=== PATIENT | male | born 1950 | race Caucasian/White ===

== ENCOUNTER → 2023-07-25 14:00 | Outpatient (REF) | payer MEDICARE, OTHER, SELFPAY ==
[2023-07-25 14:32] LABS: % Basophils 1.1 % (0-2); % Eosinophils 5.2 % (0-6); % Lymphocytes 28.4 % (20.5-51.1); % Monocytes 17.8 % (1.7-9.3); % Neutrophils 47.5 % (42.2-75.2); Absolute Eosinophils 0.2 10^3/uL (0-0.7); Absolute Monocytes 0.6 10^3/uL (0.1-0.6); Absolute Neutrophils 1.7 10^3/uL (1.4-6.5); Hematocrit 43.2 % (39.0-52.0); Hemoglobin 14.4 g/dL (13.0-18.0); Mean Corp Hgb Conc. 33.3 g/dL (33.0-37.0); Mean Corpuscular Hgb 30.2 pg (27.0-31.0); Mean Corpuscular Volume 90.6 fL (80.0-94.0); Mean Platelet Volume 11.4 fL (7.4-10.4); Nucleated Red Blood Cells % 0 % (-); Platelet Count 147 10^3/uL (130-400); Red Blood Cell Count 4.77 10^6/uL (4.70-6.10); Red Cell Dist. Width 12.7 % (11.5-14.5); White Blood Cell Count 3.5 10^3/uL (4.8-10.8)
[2023-07-25 14:38] LABS: Urine Albumin Negative (Neg - Trace); Urine Bilirubin Negative (Negative); Urine Character Clear (Clear); Urine Color Yellow; Urine Glucose Negative (Negative); Urine Ketone Negative (Negative); Urine Leukocyte Negative (Negative); Urine Nitrite Negative (Negative); Urine Occult Blood Negative (Negative); Urine Specific Gravity 1.015 (<1.030); Urine Urobilinogen Negative (Neg - 1+)
[2023-07-25 15:11] LABS: ALT (SGPT) 32 U/L (0-50); AST (SGOT) 31 U/L (17-59); Albumin 4.4 g/dl (3.5-5.0); Alkaline Phosphatase 96 U/L (38-126); Blood Urea Nitrogen 22 mg/dl (9-20); Calcium 9.5 mg/dl (8.4-10.2); Carbon Dioxide 30 mmol/L (22-30); Chloride 101 mmol/L (98-107); Glucose 88 mg/dl (70-99); Potassium 3.8 mmol/L (3.5-5.1); Sodium 136 mmol/L (135-145); Total Bilirubin 0.9 mg/dl (0.2-1.3); Total Protein 7.1 g/dl (6.3-8.2); eGFR > 60.00
[2023-07-26 11:03] LABS: Glycohemoglobin (HgbA1c) 5.9 % (4.0-5.6)
[2023-07-28 21:49] LABS: Albumin 4.15 g/dL (3.75-5.01); Alpha 1 Globulin 0.29 g/dL (0.19-0.46); Alpha 2 Globulin 0.86 g/dL (0.48-1.05); Free Kappa Light Chains,Quant 37.23 mg/L (3.30-19.40); Free Lambda Light Chains,Quant 23.68 mg/L (5.71-26.30); IgA 212 mg/dL (68-408); IgG 880 mg/dL (768-1632); IgM 176 mg/dL (35-263); Immunofixation Electrophoresis IFE Done; Kappa/Lambda Fr Light Ratio 1.57 (0.26-1.65); Total Protein-Electrophoresis 7.1 g/dL (6.3-8.2)
== END ==
LOC: REG 14:00
PROVIDERS: ATTENDING PHYSICIAN Nurse Practitioner Primary Care
DX: M35.00 Sjogren syndrome, unspecified (principal); M79.7 Fibromyalgia; I10 Essential (primary) hypertension; D47.2 Monoclonal gammopathy; G31.83 Neurocognitive disorder with Lewy bodies; R73.01 Impaired fasting glucose
CPT/HCPCS: 36415; 80053; 81003; 82784; 83036; 83521; 84155; 84165; 85025; 86334

== ENCOUNTER → 2023-12-15 18:50 | Outpatient (REF) | payer MEDICARE, OTHER, SELFPAY | LOC: CLAB 18:50 | PROVIDERS: ATTENDING PHYSICIAN Specialist | DX: N39.0 Urinary tract infection, site not specified (principal) | CPT/HCPCS: 87086 ==

== ENCOUNTER → 2023-12-24 10:02 | Outpatient (REF) | payer MEDICARE, OTHER, SELFPAY | LOC: RAD 10:02 | PROVIDERS: ATTENDING PHYSICIAN Specialist; FAMILY PHYSICIAN Nurse Practitioner Primary Care | DX: N32.1 Vesicointestinal fistula (principal) | CPT/HCPCS: 74177; Q9967 ==

== ENCOUNTER 2024-05-18 06:30 | Emergency (ER) | payer MEDICARE, OTHER, SELFPAY ==
[2024-05-18 06:32] VITALS: BP 178/120
[2024-05-18 07:07] VITALS: BP 162/101
[2024-05-18 07:08] VITALS: BMI 25.8
[2024-05-18 08:00] VITALS: BP 161/91
[2024-05-18] MEDS: ATIVAN 1 MG IV ×2 (08:20→11:08)
[2024-05-18 08:38] LABS: % Basophils 0.3 % (0-2); % Eosinophils 1.8 % (0-6); % Immature Granulocytes 0.3 % (0-0.5); % Monocytes 15.2 % (1.7-9.3); % Neutrophils 51.4 % (42.2-75.2); Absolute Eosinophils 0.1 10^3/uL (0-0.7); Absolute Lymphocytes 1.2 10^3/uL (1.2-3.4); Absolute Monocytes 0.6 10^3/uL (0.1-0.6); Hematocrit 40.6 % (39.0-52.0); Hemoglobin 13.4 g/dL (13.0-18.0); Mean Corpuscular Hgb 30.1 pg (27.0-31.0); Mean Corpuscular Volume 91.2 fL (80.0-94.0); Mean Platelet Volume 11.6 fL (7.4-10.4); Nucleated Red Blood Cells % 0 % (-); Platelet Count 106 10^3/uL (130-400); Red Blood Cell Count 4.45 10^6/uL (4.70-6.10); Red Cell Dist. Width 12.9 % (11.5-14.5); White Blood Cell Count 3.9 10^3/uL (4.8-10.8)
--- NOTE | 2024-05-18 08:47 | ED.GENMED ---
History of Present Illness
General
Chief Complaint: Medication Reaction
Source: patient
Exam Limitations: none
Time Seen by Provider: 05/18/24 08:08
History of Present Illness
History of Present Illness:
73-year-old male with history of chronic headache presents with uncontrollable shakes. The shakes started after starting the temazepam he has been taking for sleep. He has seen several specialists here and in [place] for his chronic
headaches. No identifiable cause is found for his chronic headaches. The or other something new to his body he gets shakes. Typically relieved with IV Ativan. Patient denies chest pain abdominal pain shortness of breath. No other
complaints at this time
Past History
Past History
ED Past Medical History: CAD, COPD (Slight), Fibromyalgia, HTN, Hypercholesterolemia, CA, Hypothyroidism, Psychiatric (depression), Other (Chronic ear inflammation, Lewy body Dementia), Other (CKD stage 3.) and Other (chronic low back pain, chronic
pain syndrome/narcotic dependent. Chronic headaches. PNA, vertigo,)
ED Past Surgical History: Cardiac (Stents x1) and Other (Hernia surgery, Tube right ear, Morphine pump place and then removed)
Social History
Tobacco: Former smoker
Alcohol: None
Drug: None
Personal:
Living: with family
Employment: Disabled
Family History
Family History: Hypertension
Phy Exam
Physical Exam
Physical Exam:
General: Well-appearing male no acute respiratory distress
HEENT: Normocephalic atraumatic
Heart: Regular rate and rhythm no murmurs
Lungs: Clear no wheeze
Neurologic exam: Tremors noted and involuntary muscle contractions are noted of the neck and the hands. Patient is alert and oriented able to answer questions.
Extremities: No cyanosis
Course
Orders/Labs/Results
Orders:
Orders
05/18/24 08:15
Lorazepam [Ativan] 1 mg IV NOW STA
05/18/24 08:21
Complete Blood Count/With Diff Urgent
Comprehensive Metabolic Panel Urgent
05/18/24 10:00
COVID-19 Antigen Urgent
Source: Nasal Swab
Influenza A+B Rapid Molecular Urgent
[facility]ITNEY Source: Nasal Swab
Specimen Description:
05/18/24 10:40
CT Head W/o Iv Contrast Urgent
Comment:
Reason For Exam: tremor
Lorazepam [Ativan] 1 mg IV NOW STA
Abnormal Lab Results
05/18/24
08:21
WBC 3.9 L 10^3/uL
(4.8-10.8)
RBC 4.45 L 10^6/uL
(4.70-6.10)
Plt Count 106 L 10^3/uL
(130-400)
MPV 11.6 H fL
(7.4-10.4)
Monocytes % 15.2 H %
(1.7-9.3)
BUN 23 H mg/dl
(9-20)
05/18/24 08:21
05/18/24 08:21
Vital Signs
Initial and Last Documented VS:
Initial Vital Signs
Pulse Resp BP Pulse Ox
84 28 178/120 97
05/18/24 06:32 05/18/24 06:32 05/18/24 06:32 05/18/24 06:32
Last Documented Vital Signs
Temp Pulse Resp BP Pulse Ox
98 F 68 20 168/79 96
05/18/24 07:10 05/18/24 11:15 05/18/24 11:15 05/18/24 11:00 05/18/24 11:15
MDM/Problems Addressed
Differential Diagnosis Includes:
Involuntary tremors/muscle contractions. Family thinks this could be a reaction to the temazepam he recently started to help him sleep. Patient has chronic headaches. He has been seen for his headaches.
*Critical Care Note
Total Time (30-74mins, 75-104mins- exclusive of procedures): Not Applicable
Update Note
Update Note:
Patient feeling better after IV Ativan tremors have resolved. Labs reviewed without significant finding COVID and flu negative. Etiology of tremors unclear but patient has had these before. No indication for admission. Stable for discharge with
follow-up with his neurologist as planned
Patient did develop some more tremors. He received another dose of Ativan which helped. CT of the head was negative COVID and flu were negative. These are ongoing symptoms these are not acute. Suspect acute on chronic symptoms. No indication
for admission comfortable discharge stable for discharge
ED Attending Note
-
Portions of this chart may have been created with voice recognition software.� Occasional wrong word or��sound alike� substitutions may have occurred due to the inherent limitations of voice recognition software.
Discharge Plan
Departure
Patient Disposition: Home (Routine Discharge)
Date of Disposition: 05/18/24
Time of Disposition: 10:32
Patient with high blood pressure during this ER visit?: No
Discharge Problem:
tremors
Instructions: Tremor
Prescriptions:
No Action
gabapentin 300 MG capsule
600 mg PO BID
famotidine [Pepcid] 40 mg Tablet
40 mg PO DAILY
methadone 5 mg Tablet
5 mg PO Q8HPRN PRN (Reason: severe pain)
Rx Instructions:
05/18/24: filled #90 tablets/30 day supply on 05/10/24 at [id number]
cholecalciferol (vitamin D3) [Vitamin D3] 25 mcg (1,000 unit) Capsule
25 mcg PO DAILY
memantine 10 mg Tablet
10 mg PO BID
duloxetine [Cymbalta] 60 mg Capsule,Delayed Release(Dr/Ec)
60 mg PO DAILY
clopidogrel [Plavix] 75 mg Tablet
75 mg PO DAILY
topiramate [Topamax] 50 mg Tablet
50 mg PO BID
Patient Comments:
05/18/24: per , topamax was just re-started yesterday with dosing topamax 50mg daily x 1 week then 50mg BID. No doses taken.
gabapentin 600 mg tablet
600 mg PO DAILYPRN PRN (Reason: pain )
metoprolol succinate 25 mg tablet extended release 24 hr
25 mg PO DAILY
Qulipta 60 mg tablet
60 mg PO DAILY
Referrals:
Starr Edwards CRNP [Family Provider] -
Activity Restrictions/Additional Instructions:
Please return here for worsening symptoms otherwise follow-up with your neurologist as planned
Interventions
Interventions:
*Risk Screen - Suicide Last Done: 05/18/24 06:32
*General Assessment Last Done: 05/18/24 07:08
*Neglect/Abuse Screening Last Done: 05/18/24 06:32
ED- Fall Risk Assessment Last Done: 05/18/24 11:14
*ED COVID-19 Vaccine History Last Done: 05/18/24 07:08
ED-Skin Assessment Last Done: 05/18/24 07:10
ED- Pulmonary Assessment Last Done: 05/18/24 07:10
ED-EENT Assessment Last Done: 05/18/24 07:10
Discharge Date and Time
Print Language: TAJIK
[2024-05-18 08:48] LABS: ALT (SGPT) 36 U/L (0-50); AST (SGOT) 32 U/L (17-59); Albumin 4.4 g/dl (3.5-5.0); Alkaline Phosphatase 80 U/L (38-126); Blood Urea Nitrogen 23 mg/dl (9-20); Calcium 9.7 mg/dl (8.4-10.2); Carbon Dioxide 28 mmol/L (22-30); Chloride 103 mmol/L (98-107); Estimated Creatinine Clearance 79 ml/min; Glucose 95 mg/dl (70-99); Potassium 4.3 mmol/L (3.5-5.1); Sodium 142 mmol/L (135-145); Total Bilirubin 0.5 mg/dl (0.2-1.3); Total Protein 7.1 g/dl (6.3-8.2); eGFR > 60.00
[2024-05-18 10:21] LABS: COVID-19 Antigen Negative (Negative)
[2024-05-18 10:31] VITALS: BP 174/95
[2024-05-18 11:00] VITALS: BP 168/79
[2024-05-18 13:11] VITALS: BP 163/71
== END 2024-05-18 13:14 | disposition home or self-care (01) ==
LOC: EMR 06:30
PROVIDERS: Physician Assistant; EMERGENCY PHYSICIAN Emergency Medicine; FAMILY PHYSICIAN Nurse Practitioner Primary Care
DX: R25.1 Tremor, unspecified (principal); I25.10 Atherosclerotic heart disease of native coronary artery without angina pectoris; J44.9 Chronic obstructive pulmonary disease, unspecified; I12.9 Hypertensive chronic kidney disease with stage 1 through stage 4 chronic kidney disease, or unspecified chronic kidney disease; N18.30 Chronic kidney disease, stage 3 unspecified; E78.00 Pure hypercholesterolemia, unspecified; G31.83 Neurocognitive disorder with Lewy bodies; F02.80 Dementia in other diseases classified elsewhere, unspecified severity, without behavioral disturbance, psychotic disturbance, mood disturbance, and anxiety; G89.4 Chronic pain syndrome; R51.9 Headache, unspecified; Z87.891 Personal history of nicotine dependence; Z95.5 Presence of coronary angioplasty implant and graft; Z79.899 Other long term (current) drug therapy
CPT/HCPCS: 99284; 96374; 96375; 70450; 80053; 85025; 87502; 87811

== ENCOUNTER → 2024-09-23 14:03 | Outpatient (REF) | payer MEDICARE, OTHER, SELFPAY ==
[2024-09-23 14:56] LABS: % Basophils 0.9 % (0-2); % Eosinophils 2.4 % (0-6); % Lymphocytes 29.2 % (20.5-51.1); % Monocytes 13.3 % (1.7-9.3); % Neutrophils 54.2 % (42.2-75.2); Absolute Eosinophils 0.1 10^3/uL (0-0.7); Absolute Monocytes 0.4 10^3/uL (0.1-0.6); Absolute Neutrophils 1.8 10^3/uL (1.4-6.5); Hematocrit 34.2 % (39.0-52.0); Hemoglobin 11.4 g/dL (13.0-18.0); Mean Corp Hgb Conc. 33.3 g/dL (33.0-37.0); Mean Corpuscular Hgb 30.1 pg (27.0-31.0); Mean Corpuscular Volume 90.2 fL (80.0-94.0); Mean Platelet Volume 11.7 fL (7.4-10.4); Nucleated Red Blood Cells % 0 % (-); Platelet Count 104 10^3/uL (130-400); Red Blood Cell Count 3.79 10^6/uL (4.70-6.10); Red Cell Dist. Width 13.8 % (11.5-14.5); White Blood Cell Count 3.3 10^3/uL (4.8-10.8)
[2024-09-23 15:04] LABS: D-Dimer 0.66 ug/mlFEU (0.00-0.50)
[2024-09-23 15:38] LABS: ALT (SGPT) 23 U/L (0-50); AST (SGOT) 32 U/L (17-59); Albumin 4.1 g/dl (3.5-5.0); Alkaline Phosphatase 95 U/L (38-126); Blood Urea Nitrogen 20 mg/dl (9-20); Calcium 9.3 mg/dl (8.4-10.2); Carbon Dioxide 26 mmol/L (22-30); Chloride 107 mmol/L (98-107); Glucose 92 mg/dl (70-99); Potassium 4.5 mmol/L (3.5-5.1); Sodium 142 mmol/L (135-145); Total Bilirubin 0.8 mg/dl (0.2-1.3); Total Protein 6.5 g/dl (6.3-8.2); eGFR > 60.00
== END ==
LOC: REG 14:03
PROVIDERS: ATTENDING PHYSICIAN Nurse Practitioner Family; FAMILY PHYSICIAN Nurse Practitioner Primary Care
DX: R22.42 Localized swelling, mass and lump, left lower limb (principal); L03.116 Cellulitis of left lower limb
CPT/HCPCS: 36415; 80053; 85025; 85379

== ENCOUNTER → 2025-01-01 11:20 | Outpatient (REF) | payer MEDICARE, OTHER, SELFPAY | LOC: PAVMRI 11:20 | PROVIDERS: ATTENDING PHYSICIAN Psychiatry & Neurology Neurology; FAMILY PHYSICIAN Nurse Practitioner Primary Care | DX: M47.812 Spondylosis without myelopathy or radiculopathy, cervical region (principal) | CPT/HCPCS: 72141 ==

== ENCOUNTER 2025-03-24 06:43 | Emergency (ER) | payer MEDICARE, OTHER, SELFPAY ==
[2025-03-24 06:47] VITALS: BP 134/95
--- NOTE | 2025-03-24 07:37 | ED.GENMED ---
History of Present Illness
General
Chief Complaint: Head Injury
Time Seen by Provider: 03/24/25 06:58
History of Present Illness
History of Present Illness:
74-year-old male with history of CAD, hypertension, hyperlipidemia, and prior CVA presents to the emergency department for evaluation of a head injury. He states he 'had a bad dream and jumped out of bed' which resulted in him falling and striking
his head on a nearby dresser. He denies LOC. Fall was not witnessed by his spouse. He denies headaches or vomiting at this time. Takes baby aspirin but no anticoagulants
Past History
Past History
ED Past Medical History: CAD, COPD (Slight), Fibromyalgia, HTN, Hypercholesterolemia, VT, Hypothyroidism, Psychiatric (depression), Other (Chronic ear inflammation, Lewy body Dementia), Other (CKD stage 3.) and Other (chronic low back pain, chronic
pain syndrome/narcotic dependent. Chronic headaches. PNA, vertigo,)
ED Past Surgical History: Cardiac (Stents x1) and Other (Hernia surgery, Tube right ear, Morphine pump place and then removed)
Social History
Tobacco: Former smoker
Alcohol: None
Drug: None
Personal:
Living: with family
Employment: Disabled
Family History
Family History: Hypertension
Review of Systems
Review of Systems
Allergies reviewed?: Yes
All Other Systems: ROS reviewed and negative except as documented in HPI and ROS
Phy Exam
Physical Exam
Physical Exam:
GEN: Well appearing, NAD, WDWN
HEENT: 5 cm V-shaped laceration to the left parietal scalp with no cephalohematoma. There is a separate cephalohematoma to the right temporal scalp with no opening and no crepitus; oral mucosa moist, no scleral icterus
Cardiac: Regular rate
Lung: No respiratory distress, no tachypnea
MSK: No gross deformity or injuries
Skin: Good color, no pallor or jaundice, no rashes
Neuro: AO x3, cranial nerves II through XII grossly intact, moves all extremities freely
Psych: Calm, cooperative
Course
Orders/Labs/Results
Orders:
Orders
03/24/25 07:28
CT Head W/o Iv Contrast Urgent
Comment:
Reason For Exam: head trauma
Tetanus/Diphth/Acelpertussis [Adacel] 0.5 ml IM .ONCE ONE
Vital Signs
Initial and Last Documented VS:
Initial Vital Signs
Temp Pulse Resp BP Pulse Ox
98.2 F 71 16 134/95 99
03/24/25 06:47 03/24/25 06:47 03/24/25 06:47 03/24/25 06:47 03/24/25 06:47
Last Documented Vital Signs
Temp Pulse Resp BP Pulse Ox
98.2 F 71 16 134/95 99
03/24/25 06:47 03/24/25 06:47 03/24/25 06:47 03/24/25 06:47 03/24/25 07:39
Procedures
Laceration Closure
Left parietal scalp:
Status of Wound: clean
Size of Wound in cm: 5
Description of Wound Edges: sharp
Preparation: cleaned with saline
Anesthesia: 1% Lidocaine with epi
Wound exploration: explored to base- no FB
Type of Closure: single layer closure
Skin Closure Material: skin venecia
Number of sutures: 8
MDM/Problems Addressed
MDM/Problems Addressed:
CT was obtained as the patient showed to distinctly different sign and trauma with left parietal scalp laceration and right temporal skull cephalohematoma. CT was ultimately negative. Scalp wound repaired after irrigation and tetanus updated.
*Pulse Oximetry
SaO2: 99
Oxygen Mode of Delivery: Room air
Patient hypoxic: no
*Critical Care Note
Total Time (30-74mins, 75-104mins- exclusive of procedures): Not Applicable
ED Attending Note
-
Portions of this chart may have been created with voice recognition software.� Occasional wrong word or��sound alike� substitutions may have occurred due to the inherent limitations of voice recognition software.
Discharge Plan
Departure
Patient Disposition: Home (Routine Discharge)
Date of Disposition: 03/24/25
Time of Disposition: 08:41
Patient with high blood pressure during this ER visit?: No
Discharge Problem:
Laceration of scalp
Instructions: Laceration Repair With [place] (DC)
Prescriptions:
No Action
gabapentin 300 MG capsule
600 mg PO BID
famotidine [Pepcid] 40 mg Tablet
40 mg PO DAILY
methadone 5 mg Tablet
5 mg PO Q8HPRN PRN (Reason: severe pain)
Rx Instructions:
05/18/24: filled #90 tablets/30 day supply on 05/10/24 at [place] [id number]
cholecalciferol (vitamin D3) [Vitamin D3] 25 mcg (1,000 unit) Capsule
25 mcg PO DAILY
memantine 10 mg Tablet
10 mg PO BID
duloxetine [Cymbalta] 60 mg Capsule,Delayed Release(Dr/Ec)
60 mg PO DAILY
clopidogrel [Plavix] 75 mg Tablet
75 mg PO DAILY
topiramate [Topamax] 50 mg Tablet
50 mg PO BID
Patient Comments:
05/18/24: per , topamax was just re-started yesterday with dosing topamax 50mg daily x 1 week then 50mg BID. No doses taken.
gabapentin 600 mg tablet
600 mg PO DAILYPRN PRN (Reason: pain )
metoprolol succinate 25 mg tablet extended release 24 hr
25 mg PO DAILY
Qulipta 60 mg tablet
60 mg PO DAILY
Referrals:
Starr Edwards CRNP [Family Provider, Internal Medicine]
Activity Restrictions/Additional Instructions:
Keep wound dry for remainder of today and he may begin as normal tomorrow. Venecia to be removed by your primary doctor or urgent care in 5 to 7 days
Interventions
Interventions:
*Risk Screen - Suicide Last Done: 03/24/25 06:47
*General Assessment Last Done: 03/24/25 07:22
*Neglect/Abuse Screening Last Done: 03/24/25 06:47
*ED- Fall Risk Assessment Last Done: 03/24/25 07:22
*ED COVID-19 Vaccine History Last Done: 03/24/25 07:22
*ED Influenza Vaccine History Last Done: 03/24/25 07:22
ED- Neurological Assessment Last Done: 03/24/25 07:22
ED-Skin Assessment Last Done: 03/24/25 07:22
Discharge Date and Time
Print Language: ALGERIAN
[2025-03-24] MEDS: ADACEL 0.5 ML IM (07:58)
== END 2025-03-24 08:41 | disposition home or self-care (01) ==
LOC: EMR 06:43
PROVIDERS: EMERGENCY PHYSICIAN Emergency Medicine; FAMILY PHYSICIAN Nurse Practitioner Primary Care
DX: S01.01XA Laceration without foreign body of scalp, initial encounter (principal); W01.190A Fall on same level from slipping, tripping and stumbling with subsequent striking against furniture, initial encounter; Y92.003 Bedroom of unspecified non-institutional (private) residence as the place of occurrence of the external cause; G31.83 Neurocognitive disorder with Lewy bodies; F02.80 Dementia in other diseases classified elsewhere, unspecified severity, without behavioral disturbance, psychotic disturbance, mood disturbance, and anxiety; I25.10 Atherosclerotic heart disease of native coronary artery without angina pectoris; I12.9 Hypertensive chronic kidney disease with stage 1 through stage 4 chronic kidney disease, or unspecified chronic kidney disease; N18.30 Chronic kidney disease, stage 3 unspecified; E78.00 Pure hypercholesterolemia, unspecified; I25.2 Old myocardial infarction; J44.9 Chronic obstructive pulmonary disease, unspecified; E03.9 Hypothyroidism, unspecified; F32.A Depression, unspecified; G89.4 Chronic pain syndrome; M79.7 Fibromyalgia; F11.20 Opioid dependence, uncomplicated; Z23 Encounter for immunization; Z79.02 Long term (current) use of antithrombotics/antiplatelets; Z95.5 Presence of coronary angioplasty implant and graft; Z86.73 Personal history of transient ischemic attack (TIA), and cerebral infarction without residual deficits; Z87.891 Personal history of nicotine dependence; Z82.49 Family history of ischemic heart disease and other diseases of the circulatory system
CPT/HCPCS: 99284; 12002; 90471; 70450; 90715